=== PATIENT | female | born 1980 | race Caucasian/White ===

== ENCOUNTER 2017-06-09 12:20 | Emergency (ER) | payer MEDICAID ==
[~2017-06-09] VITALS: Ht 160 cm; Wt 78.0 kg
[2017-06-09 13:00] VITALS: BP 127/65; Ht 160 cm; Wt 78.0 kg
== END 2017-06-09 18:33 | disposition left against medical advice (07) ==
LOC: ED 12:20
DX: Z53.21 Procedure and treatment not carried out due to patient leaving prior to being seen by health care provider (principal)